=== PATIENT | female | born 1995 | race Hispanic/Latino ===

== ENCOUNTER 2022-05-18 19:08 | Emergency (ER) | payer MEDICAID, SELFPAY ==
[2022-05-18 19:22] VITALS: BP 112/59; PULSE 73; RESP 16; TEMP 37.6; O2SAT 100
--- NOTE | 2022-05-18 19:32 | ED.SKABFB ---
HPI - Skin/Abscess/Foreign Bdy General Chief complaint: Skin/Abscess/Foreign Body Stated complaint: Insect Bite Rt Leg Time Seen by Provider: 05/18/22 19:30 History of Present Illness HPI narrative: 26 year old female who presents to [facility] care with complaints of two lesions on her right leg that she thinks are some kind of insect bite, with itching and discomfort to area.First lesion is < than 0.5 cm diameter with minimal redness no induration and 2nd lesion is 1cm X1 cm with redness surrounding small red lesion, no drainage noted. Patient denies any difficulty with swallowing or any respiratory difficulty. Patient denies any fevers, chills or sweats. MD complaint: insect bite/sting and lesion Onset (ago): day(s) (2) Tetanus up to date: unsure Treatments prior to arrival: other (cortizone) Related Data Home Medications Medication Instructions Recorded Confirmed bupropion HCl 300 mg 24 hr tablet, 300 mg PO QAM 05/18/22 05/18/22 extended release lysine 500 mg tablet (L-Lysine) 500 mg PO DAILY 05/18/22 05/18/22 prazosin 2 mg capsule 2 mg PO DAILY 05/18/22 05/18/22 risperidone 1 mg tablet 1 mg PO DAILY 05/18/22 05/18/22 topiramate 100 mg tablet 100 mg PO DAILY 05/18/22 05/18/22 Allergies Allergy/AdvReac Type Severity Reaction Status Date / Time cefdinir [From Omnicef] AdvReac Severe Swelling Verified 05/18/22 19:30 of Lip/Tongue/Throat Review of Systems Review of Systems: CONSTITUTIONAL: Denies fever, chills, or sweats. EYES: Denies visual changes, redness, or discharge. ENT: Denies rhinorrhea, congestion, sore throat, or otalgia. CARDIOVASCULAR: Denies chest pain, palpitations, or edema. RESPIRATORY: Denies cough or dyspnea. GASTROINTESTINAL: Denies abdominal pain, nausea, vomiting, or diarrhea. GENITOURINARY: Denies dysuria or hematuria. SKIN: Positive for 2 lesion to right upper lower leg with redness and itching MUSCULOSKELETAL: Denies back pain, joint pain, or myalgia. NEUROLOGIC: Denies headache, numbness, or weakness. PSYCHIATRIC: Positive for history of anxiety or depression. [facility] Past Medical History Medical History (Updated 05/19/22 @ 08:26 by Zenaida Baxter NP) Anxiety with depression Dog bite facial required facial reconstruction Night terrors, adult Social History Social History (Updated 05/19/22 @ 08:24 by eZnaida Baxter NP) Smoking status: Current every day smoker Tobacco type: e-cigarettes/vaping Alcohol intake: unknown Substance use: unknown Gender identity (if verbalized by the patient): Female Comments At time of signature, agree with nursing past medical, surgical, social and family history. There is no relevant family history pertinent to the presenting complaint Exam Narrative: GENERAL: Well-appearing, well-nourished, and in no acute distress. HEAD: Normocephalic, atraumatic. EYES: PERRLA and EOMI. ENT: Nares clear, no rhinorrhea or epistaxis. Mucous membranes moist. NECK: Supple.no lymphadenopathy CHEST: Clear to auscultation. No respiratory distress.SAO2 100% on room air HEART: Regular rate and rhythm. No murmur heard. Normal peripheral pulses. ABDOMEN: Soft, nontender, nondistended, normal active bowel sounds. EXTREMITIES: Normal range of motion. No edema. SKIN: Warm, dry, Lesions X 2 on her right proximal lower leg one lesion <0.5cm diameter red with no drainage noted or induration. 2nd lesion area 1cm X1cm with small center lesion, no drainage or induration is itchy and painful NEURO: No focal deficits. Alert and oriented x3. Course Course Level of Care: Express Care Visit Vital Signs Vital signs: Vital Signs Temperature 37.6 C H 05/18/22 19:22 Pulse Rate 73 05/18/22 19:22 Respiratory Rate 16 05/18/22 19:22 Blood Pressure 112/59 L 05/18/22 19:22 Pulse Oximetry 100 05/18/22 19:22 Oxygen Delivery Room Air 05/18/22 19:22 Temperature 37.6 C H 05/18/22 19:22 Pulse Rate 73 05/18/22 19:22 Respiratory Rate 16 05/18/22
== END 2022-05-18 19:43 | disposition home or self-care (01) ==
PROVIDERS: Emergency Provider Registered Nurse
DX: S80.861A Insect bite (nonvenomous), right lower leg, initial encounter (principal); W57.XXXA Bitten or stung by nonvenomous insect and other nonvenomous arthropods, initial encounter; L02.415 Cutaneous abscess of right lower limb; F17.290 Nicotine dependence, other tobacco product, uncomplicated; F41.9 Anxiety disorder, unspecified; F32.A Depression, unspecified
CPT/HCPCS: 99203; G0463

== ENCOUNTER 2022-06-01 16:49 | Emergency (ER) | payer MEDICAID, SELFPAY ==
[2022-06-01 17:04] VITALS: BP 119/56; PULSE 83; RESP 18; TEMP 36.7; O2SAT 100
--- NOTE | 2022-06-01 17:18 | ED.GENADULT ---
HPI - General Adult General Chief complaint: Skin/Abscess/Foreign Body Stated complaint: Rash History of Present Illness HPI narrative: 26 y/o female presents to the [facility] via pov for an evaluation of a generalized rash that has been present x2 weeks. She reports the rash to be pruritic and erythematous. Itching is moderate. Denies using otc meds for sx. Scratching alleviates itch. Does not identify aggravating factors. Of note, patient reports that she was seen At this clinic approximately 2 weeks ago and was prescribed an antibiotic for a skin infection. She states the rash is similar. Related Data Home Medications Medication Instructions Recorded Confirmed bupropion HCl 300 mg 24 hr tablet, 300 mg PO QAM 05/18/22 06/01/22 extended release lysine 500 mg tablet (L-Lysine) 500 mg PO DAILY 05/18/22 06/01/22 prazosin 2 mg capsule 2 mg PO DAILY 05/18/22 06/01/22 risperidone 1 mg tablet 1 mg PO DAILY 05/18/22 06/01/22 topiramate 100 mg tablet 100 mg PO DAILY 05/18/22 06/01/22 Allergies Allergy/AdvReac Type Severity Reaction Status Date / Time cefdinir [From Omnicef] AdvReac Severe Swelling Verified 06/01/22 16:53 of Lip/Tongue/Throat Review of Systems Review of Systems: Denies recent/new changes in soaps, perfumes, lotions, detergents, and shampoos. Denies working with chemicals. Denies new or changes in medications/foods. Pertinent negatives fever, chills, sweats, change in appetite, malaise, poor p.o. intake, recent weight loss, change in appetite, myalgias, lymphadenopathy, LOC, dizziness, burning sensation, petechiae, blistering, swelling, streaking, warmth, lesions, easy bruising, lip/tongue/throat swelling, facial swelling, abdominal pain, nausea, vomiting, numbness, tingling, loss of sensation, cough, wheezing, chest pain, and heart palpitations/murmurs. [facility] Past Medical History Medical History Anxiety with depression Dog bite facial required facial reconstruction Night terrors, adult Social History Social History (Updated 05/19/22 @ 08:24 by Zenaida Baxter NP) Smoking status: Current every day smoker Tobacco type: e-cigarettes/vaping Alcohol intake: unknown Substance use: unknown Gender identity (if verbalized by the patient): Female Comments I have reviewed and agree with the patient's past medical, surgical, social, and family hx as documented by the RN. There is no relevant family history pertinent to the presenting complaint. Exam Narrative: GENERAL: Well-appearing, well-nourished, and in no acute distress. HEAD: Normocephalic, atraumatic. No facial swelling appreciated. EYES: PERRLA and EOMI. No evidence of erythema, swelling, or drainage. ENT: Nares clear, no rhinorrhea or epistaxis.Mucous membranes moist and pink. Uvula is midline without erythema and swelling. No evidence of obstruction, petechial rash, cobblestoning, lesions, ulcers, erythema, swelling, exudates, peritonsillar abscess, tenting, or drooling. Breath odor and voice normal. NECK: Supple. No Lymphadenopathy or nuchal rigidity appreciated. CHEST: Bilateral lung russo are clear to auscultation. No respiratory distress. No evidence of cough or pleuritic cp upon examination. HEART: Regular rate and rhythm. No murmur, gallop, or rub heard. EXTREMITIES: Normal range of motion. No edema. SKIN: Warm, dry. Generalized rash appreciated. Rash consistent with insect bites. Multiple areas of abrasions consistent with scratching. Rash is sparsely dispersed. NEURO: No focal deficits. Alert and oriented x3. Course Course Level of Care: Express Care Visit Vital Signs Vital signs: Vital Signs Temperature 98.0 F 06/01/22 17:04 Pulse Rate 83 06/01/22 17:04 Respiratory Rate 18 06/01/22 17:04 Blood Pressure 119/56 L 06/01/22 17:04 Pulse Oximetry 100 06/01/22 17:04 Oxygen Delivery Room Air 06/01/22 17:04 [facility]
== END 2022-06-01 17:19 | disposition home or self-care (01) ==
PROVIDERS: Emergency Provider Nurse Practitioner Family
DX: R21 Rash and other nonspecific skin eruption (principal); F41.8 Other specified anxiety disorders; F17.290 Nicotine dependence, other tobacco product, uncomplicated
CPT/HCPCS: 99213; G0463

== ENCOUNTER 2023-07-22 21:30 | Emergency (ER) | payer MEDICAID, SELFPAY ==
[2023-07-22 21:33] VITALS: BP 116/58; PULSE 81; RESP 14; TEMP 36.6; O2SAT 100
[2023-07-22 22:55] LABS: Beta HCG Quantitative < 2.39 mIU/ML
--- NOTE | 2023-07-22 23:07 | ED.NAVMDI ---
HPI - Nausea/Vomiting/Diarrhea General Chief complaint: Nausea/Vomiting/Diarrhea Stated complaint: nausea Time Seen by Provider: 07/22/23 22:07 Source: patient Mode of arrival: ambulatory Limitations: no limitations History of Present Illness HPI Narrative: A 27-year-old female that presents emergency department for nausea. Ongoing over the last couple of days. Reports 1 episode of vomiting. She took a home test that was negative. She presented to the ER for a blood test. Does report that the air conditioning has been out at her house and has been hot. Denies fever, abdominal pain, diarrhea, or dysuria. Related Data Allergies Allergy/AdvReac Type Severity Reaction Status Date / Time cefdinir [From Omnicef] Allergy Swelling Verified 07/22/23 21:32 of Lip/Tongue/Throat Review of Systems Review of Systems: CONSTITUTIONAL: Denies fever GASTROINTESTINAL: Reports nausea and vomiting. Denies abdominal pain, diarrhea. GENITOURINARY: Denies dysuria All systems reviewed & are unremarkable except as noted in HPI and below PMFSH Past Medical History Medical History (Updated 07/22/23 @ 23:10 by Randi Pérez PA-C) No active medical problems Social History Social History (Updated 07/22/23 @ 23:10 by Randi Pérez PA-C) Substance use: never Exam Narrative: GENERAL: Well-appearing, well-nourished, and in no acute distress. HEAD: Normocephalic, atraumatic. EYES: EOMI. ENT: Nares clear, no rhinorrhea or epistaxis. Mucous membranes moist. Oropharynx without tonsillar hypertrophy exudate or other lesions. CHEST: Clear to auscultation. No respiratory distress. No wheezes rales or rhonchi HEART: Regular rate and rhythm. No murmur heard. Normal peripheral pulses. ABDOMEN: Soft, nontender, nondistended, normal active bowel sounds. EXTREMITIES: Normal range of motion. No edema. SKIN: Warm, dry, no rash. NEURO: No focal deficits. Alert and oriented x3. PSYCH: Normal mood and affect Course Course Emergency Course: Patient offered blood work for further evaluation. She declines at this time Vital Signs Vital signs: Vital Signs Temperature 97.9 F 07/22/23 21:33 Pulse Rate 81 07/22/23 21:33 Respiratory Rate 14 07/22/23 21:33 Blood Pressure 116/58 L 07/22/23 21:33 Pulse Oximetry 100 07/22/23 21:33 Temperature 97.9 F 07/22/23 21:33 Pulse Rate 81 07/22/23 21:33 Respiratory Rate 14 07/22/23 21:33 Blood Pressure 116/58 L 07/22/23 21:33 Pulse Oximetry 100 07/22/23 21:33 MDM - Nausea/Vomiting/Diarrhea MDM Narrative Medical decision making narrative: Patient presents to the emergency department for nausea noted over the last couple days. She thought maybe she was . She took a home test that was negative, so she presented to the ER for a serum test. This is negative as well. She has no abdominal tenderness. She does report that her air conditioning has been out the last couple of days it is very hot in her house. Could be the cause of her symptoms. Offered further evaluation with blood work, she declines at this time. She was given warnings to return to the ER Differential Diagnosis Differential diagnosis: Likely food poisoning, dehydration and other () Lab Data Attestation: I reviewed the patient's lab results. Labs: Lab Results 07/22/23 Range/Units 22:23 Beta HCG, Quant < 2.39 mIU/ML Critical Care Time Critical Care Time Critical Care Time: No Discharge Plan Discharge Clinical Impression: Nausea Patient Disposition: Home, Self-Care Condition: Stable Instructions: Acute Nausea and Vomiting (ED) Additional Instructions: Return to the ER if you experience fever, abdominal pain with nausea and vomiting, you are unable to keep down liquids or solids, blood in the stool, pain or burning with urination, blood in the urine or any other symptoms that are concerning to you Remain well hydrat
== END 2023-07-22 23:19 | disposition home or self-care (01) ==
PROVIDERS: Emergency Provider Physician Assistant
DX: R11.0 Nausea (principal)
CPT/HCPCS: 36415; 84702; 99283

== ENCOUNTER 2024-01-15 22:35 | Emergency (ER) | payer MEDICAID, SELFPAY ==
[2024-01-15 22:44] VITALS: BP 121/66; PULSE 90; RESP 16; TEMP 36.2; O2SAT 98
== END 2024-01-16 00:23 | disposition left against medical advice (07) ==
DX: R10.9 Unspecified abdominal pain (principal)
CPT/HCPCS: 99199

== ENCOUNTER 2024-06-16 08:32 | Outpatient (CLI) | payer OTHER, SELFPAY ==
--- NOTE | ~2024-06-16 | US_ITS ---
EXAMINATION: US OB <=14 wk fetus w TV DATE: 06/16/2024 09:40 INDICATION: Confirmation of viability during first trimester TECHNIQUE: Real-time pelvic ultrasound utilizing both a transvaginal and transabdominal probe was pe rformed. The interpreting radiologist was not present for the study. COMPARISON: None. FINDINGS: The uterus measures 13.8 x 6.4 x 8.5 cm. There is an intrauterine gestational sac. A yolk sac and fe nubia pole are identified. The crown rump length measures 1.8 cm, which correlates with an estimated ge stational age of 8 weeks and 3 days. heart motion is identified measuring 159 beats per minute (bpm) by M-mode Doppler. The right ovary measures 2.3 x 2.3 x 2.2 cm. The left ovary measures 2.7 x 2.4 x 2.2 cm. There is no free fluid in the pelvis. IMPRESSION: 1. Single living fetus with heart rate of 159 bpm. 2. Gestational age by ultrasound of 8 weeks 3 day(s) +/- 4 day(s) with ultrasound estimated date of delivery (HILARIA) of 01/23/2025. Reviewed, dictated and finalized at location A. IMPRESSION: 1. Single living fetus with heart rate of 159 bpm. 2. Gestational age by ultrasound of 8 weeks 3 day(s) +/- 4 day(s) with ultraso und estimated date of delivery (HILARIA) of 01/23/2025.
== END 2024-06-16 08:33 | disposition home or self-care (01) ==
LOC: ANHIMG 08:35
PROVIDERS: Referring Provider Advanced Practice Midwife; Visit Provider Obstetrics & Gynecology Gynecology
DX: O36.80X0 Pregnancy with inconclusive fetal viability, not applicable or unspecified (principal); Z3A.08 8 weeks gestation of pregnancy
CPT/HCPCS: 76801; 76817

== ENCOUNTER 2024-07-21 20:11 | Emergency (ER) | payer OTHER, SELFPAY ==
[2024-07-21 20:13] VITALS: BP 108/65; PULSE 87; RESP 15; TEMP 36.4; O2SAT 100
--- NOTE | 2024-07-21 22:16 | ED.SKABFB ---
HPI - Skin/Abscess/Foreign Bdy General Chief complaint: Skin/Abscess/Foreign Body Stated complaint: ate a sandwich that had glass in it, 3 months preg Time Seen by Provider: 07/21/24 20:46 Source: patient Mode of arrival: ambulatory Limitations: no limitations History of Present Illness HPI narrative: This is a 28 year old female that presents to the ER for possible ingestion of foreign body. Reports she ate a sandwich this morning and is unsure if she maybe swallowed a piece of glass or plastic. Reports she bit down and took a clear, hard object out of her teeth. Reports she believed she swallowed some of it. Reports she has had a sore throat and a bit of a cough today. She is currently 13 weeks . Wants to make sure the baby is okay. She has been tolerating oral intake. Denies abdominal pain, vomiting, vaginal bleeding or pelvic cramping. Related Data Home Medications Medication Instructions Recorded Confirmed bupropion HCl 300 mg 24 hr tablet, 300 mg PO QAM 05/18/22 06/01/22 extended release lysine 500 mg tablet (L-Lysine) 500 mg PO DAILY 05/18/22 06/01/22 prazosin 2 mg capsule 2 mg PO DAILY 05/18/22 06/01/22 risperidone 1 mg tablet 1 mg PO DAILY 05/18/22 06/01/22 topiramate 100 mg tablet 100 mg PO DAILY 05/18/22 06/01/22 Allergies Allergy/AdvReac Type Severity Reaction Status Date / Time cefdinir [From Omnicef] Allergy Swelling Verified 07/23/23 09:12 of Lip/Tongue/Throat Review of Systems Review of Systems: CONSTITUTIONAL: Denies fever ENT: Reports sore throat GASTROINTESTINAL: Denies abdominal pain, nausea, vomiting All systems reviewed & are unremarkable except as noted in HPI and below PMFSH Past Medical History Medical History (Updated 07/21/24 @ 23:40 by Randi Pérez PA-C) Anxiety with depression Dog bite facial required facial reconstruction Night terrors, adult No active medical problems Social History Social History (System 07/23/23 @ 09:12 by Jakob Junior) Smoking status: Current every day smoker Tobacco type: e-cigarettes/vaping Alcohol intake: unknown Substance use: unknown Gender identity (if verbalized by the patient): Female Exam Narrative: GENERAL: Well-appearing, well-nourished, and in no acute distress. HEAD: Normocephalic, atraumatic. EYES: EOMI. ENT: Nares clear, no rhinorrhea or epistaxis. Mucous membranes moist. Oropharynx without tonsillar hypertrophy exudate or other lesions. Bilateral TMs pearly lainez non-bulging NECK: Supple. No adenopathy or masses. CHEST: Clear to auscultation. No respiratory distress. No wheezes rales or rhonchi HEART: Regular rate and rhythm. No murmur heard. Normal peripheral pulses. ABDOMEN: Soft, nontender, nondistended, normal active bowel sounds. EXTREMITIES: Normal range of motion. No edema. SKIN: Warm, dry, no rash. NEURO: No focal deficits. Alert and oriented x3. PSYCH: Normal mood and affect Course Course Emergency Course: Patient agrees with plan of care Vital Signs Vital signs: Vital Signs Temperature 97.6 F 07/21/24 20:13 Pulse Rate 87 07/21/24 20:13 Respiratory Rate 15 07/21/24 20:13 Blood Pressure 108/65 07/21/24 20:13 Pulse Oximetry 100 07/21/24 20:13 Temperature 97.6 F 07/21/24 20:13 Pulse Rate 87 07/21/24 20:13 Respiratory Rate 15 07/21/24 20:13 Blood Pressure 108/65 07/21/24 20:13 Pulse Oximetry 100 07/21/24 20:13 Procedures Other Procedure Procedure 1: Other Procedure: Bedside ultrasound performed which showed activity and cardiac motion MDM - Skin/Abscess/Foreign Bdy MDM Narrative Medical decision making narrative: patient presents to the emergency department for possible foreign body ingestion. Reports she was eating a sandwich this morning. Bit into something that was hard. Was unsure if it was a piece of plastic or glass. Reports she believes she swallowed some of it. Today she has had some throat discomf
[2024-07-21 22:30] LABS: Strep Group A RT-PCR NOT DETECTED (Negative)
[2024-07-21 23:52] VITALS: BP 119/68; PULSE 96; RESP 16; TEMP 36.6; O2SAT 96
== END 2024-07-22 00:18 | disposition home or self-care (01) ==
PROVIDERS: Emergency Provider Physician Assistant
DX: T18.9XXA Foreign body of alimentary tract, part unspecified, initial encounter (principal); F41.8 Other specified anxiety disorders; F17.290 Nicotine dependence, other tobacco product, uncomplicated; Z79.899 Other long term (current) drug therapy; W44.9XXA Unspecified foreign body entering into or through a natural orifice, initial encounter
CPT/HCPCS: 87651; 99283

== ENCOUNTER 2024-08-22 09:18 | Outpatient (CLI) | payer OTHER, SELFPAY ==
--- NOTE | ~2024-08-22 | US_ITS ---
EXAMINATION: US OB /maternal detail DATE: 08/22/2024 11:11 INDICATION: anatomic survey. TECHNIQUE: Real-time ultrasound of the pelvis was performed. COMPARISON: Ultrasound 06/16/2024 FINDINGS: There is a single living fetus in vertex presentation. The placenta is anterior. heart rate is 156 beats per minute (bpm). The cervical length is 4.2 cm on transabdominal images, which is normal. The amniotic fluid index is 11.3 cm, which is normal. The following biometric data were obtained: Biparietal diameter (BPD): 3.9 cm; head circumference (HC): 14.5 cm; abdominal circumference (AC): 12 .3 cm; femur length (FL): 2.5 cm. These measurements are concordant. Estimated weight is 209 g +/- 31 g, which correlates with the 39th percentile when 01/24/25 is u sed as estimated date of delivery. As single measurements, these parameters are each equal to the following estimated gestational ages: BPD: 17 weeks 6 days. HC: 17 weeks 5 days. AC: 18 weeks 0 days. FL: 17 weeks 4 days. estimated gestational age based solely on measurements from this exam is 17 weeks 6 days +/- 1 weeks 2 days. The cerebral ventricles, cerebellum, cisterna magna, and spine are normal. The heart is normal. The d iaphragm, stomach, kidneys, and bladder are normal. There are two umbilical arteries to yield a 3-ves paul cord. The cord insertion is normal. IMPRESSION: 1. Single living fetus in vertex presentation. 2. Estimated weight is 209 g +/- 31 g, which correlates with the 39th percentile when 01/24/25 is used as estimated date of delivery. 3. Normal anatomic survey. Reviewed, dictated and finalized at location A. IMPRESSION: 1. Single living fetus in vertex presentation. 2. Estimated weight is 209 g +/- 31 g, which correlates with the 39th pe rcentile when 01/24/25 is used as estimated date of delivery. 3. Normal anatomic survey.
== END 2024-08-22 09:19 | disposition home or self-care (01) ==
LOC: ANHIMG 09:22
PROVIDERS: Visit Provider Advanced Practice Midwife
DX: Z36.9 Encounter for antenatal screening, unspecified (principal)
CPT/HCPCS: 76805

== ENCOUNTER 2024-11-17 13:01 | Observation (INO) | payer OTHER, SELFPAY ==
[2024-11-17 13:30] VITALS: BP 111/63; PULSE 89
--- NOTE | 2024-11-17 13:36 | OBADM ---
This patient, Gabriela Quiros, admitted to the OB room OB Post 117 for observation. Patient/family oriented to hospital policies and general routines including ID bracelet, bed and alarms, visiting hours, pain management, procedures, bathroom and other care routines, personal items, smoking policy, room service/diet, and visiting hours. Patient/Family are encouraged to report perceived risks to care and to ask questions if they do not understand what they are told or what they should do.
[2024-11-17 13:44] LABS: Add Urine Microscopic? YES; Appearance Urine Clear (Clear); Bacteria Urine Rare /hpf; Bilirubin Urine Negative (Negative); Blood Urine Negative (Negative); Color Urine Yellow (Yellow); Glucose Urine UA Negative (Negative); Ketones Urine 1+ mg/dL (Negative); Leukocyte Esterase Ur 1+ LEU/UL (Negative); Need Manual Microscopic Reviewed; Nitrate Urine Negative (Negative); Non Pathogenic Casts 0-2; Protein Urine Negative (Negative); RBC Urine 0-2 /hpf (0-2); Specific Grav Ur 1.014 (1.001-1.035); Squamous Epithelial Cell Urine Moderate /hpf (Few); Urobilinogen Urine 0.2 mg/dL (<2.0); WBC Urine 0-5 /hpf (0-3)
--- NOTE | 2024-11-17 14:27 | PC.NURSE ---
Dr. Garcia called with reports of patient's arrival on unit with back and hip pain. NST reactive and no contractions, leaking or bleeding. Okay to discharge with Dr recommendation of support band.
--- NOTE | 2024-12-12 09:29 | PM.OBTRLD ---
OB - Triage/Final Diagnosis Visit Information Reason for evaluation: other (Abdominal and back pain) Comments/Additional reasons for admission: I have assessed the risk for this patient, Gabriela Munoz Ishaan, and determined that she would benefit from observation care. Evaluation Laboratory results: Laboratory Tests 11/17/24 13:26 Urine Color Yellow Urine Appearance Clear Urine pH 8.0 Ur Specific [place] 1.014 Urine Protein Negative Urine Glucose (UA) Negative Urine Ketones 1+ H Ur Blood (Man) Negative Urine Nitrate Negative Urine Bilirubin Negative Urine Urobilinogen 0.2 Add Ur Microanalysis Reviewed Leukocyte Esterase Rfl 1+ H Urine RBC 0-2 Urine WBC 0-5 Ur Squamous Epith Cells Moderate Urine Bacteria Rare Urine Casts 0-2
== END 2024-11-17 14:27 | disposition home or self-care (01) ==
PROVIDERS: Admitting Provider Obstetrics & Gynecology Gynecology; Visit Provider Obstetrics & Gynecology Gynecology
DX: O26.893 Other specified pregnancy related conditions, third trimester (principal); R10.9 Unspecified abdominal pain; O99.891 Other specified diseases and conditions complicating pregnancy; M54.9 Dorsalgia, unspecified; Z3A.30 30 weeks gestation of pregnancy
CPT/HCPCS: 81001; 87086; G0378; G0379

== ENCOUNTER 2025-01-13 16:45 | Inpatient (IN) | payer OTHER, SELFPAY ==
[2025-01-13] VITALS (77 sets, daily range): BP systolic 91–123; BP diastolic 51–91; PULSE 69–148; RESP 16; TEMP 36.6; O2SAT 94–100; BMI 32.0
--- OUTSIDE RECORDS SUMMARY | 2025-01-13 16:52 | XMS_ITS | Patient Health Summary ---
Author Organization [facility] Address [address] [place] [address] Care Team Providers Care Restorative Care Technician Name Role Phone Unavailable Primary Care Provider Unavailabl e Note from [facility],non-owned Affiliates and Associated Physician Practices is amultiple site organization consisting of ambulatory clinics and hospital sitesin [place], [place], [place] and [place]. This disclosure is being madepursuant to the Care Everywhere program and may not contain all information available regarding this patient. Last updated 18.[facility] Allergies * Cefdinir(Anaphylaxis) -High Criticality Medications * Be aware that medications may not be up to date on this document. Alwaysverify current medications with the patient. * Vit-Fe Fumarate-FA ( vitamin) 28-0.8 MG tablet Take 1 (one) tablet by mouth once daily * ARIPiprazole (Abilify) 1 MG/ML oral solution Take 10 mL by mouth once daily Active Problems Problem Noted Date Diagnosed Date Indication for care in labor or delivery 024 Social History Tobacco Use Types Packs/Day Years Used Date Smoking Tobacco: Never Smokeless Tobacco: Never Tobacco Cessation:Counseling Given: Not Answered Alcohol Use Standard Drinks/Week Comments Never 0 (1 standard drink = 0.6 oz pur e alcohol) Overall Financial Resource Strain (CARDIA) Answe r Date Recorded How hard is it for you to pa y for the very basics like food, housing, medical care, and heating? Not very hard 09/06/2024 [facility] [place] of Occupat ional Health - Occupational Stress Questionnaire Answer Date Recorded Do you feel stress - tense, restless, nervous, or anxious, or unable to sleep at night because your mind is troubled all the time - these days? Patient declined 09/06/2024 Hunger Vital Sign Answer Date Recorded Within the past 12 months, y ou worried that your food would run out before you got the money to buy more. Never true 09/06/20 24 Within the past 12 months, t he food you bought just didn't last and you didn't have money to get more. Never true 09/06/2024 PRAPARE - Transportation Answer Date Re corded In the past 12 months, has l ack of transportation kept you from medical appointments or from getting medications? No 06/2024 In the past 12 months, has l ack of transportation kept you from meetings, work, or from getting things needed for daily living? No 09/06/2024 Housing Stability Vital Sign Answer Toni e Recorded In the last 12 months, was t here a time when you were not able to pay the mortgage or rent on time? No 09/06/2024 In the last 12 months, how many places have you lived? 1 09/06/2024 In the last 12 months, was t here a time when you did not have a steady place to sleep or slept in a group home (including now)? No 09/06/2024 Estimated Date of Delivery Comme nts Yes 01/24/2025 Based on Patient Reported Sex and Gender Information Value Date Recorded Sex Assigned at Not on file Gender Identity Not on file Sexual Orientation Not on file Last Filed Vital Signs Vital Sign Reading Time Taken Comments Blood Pressure 105/58 09/06/2024 8:19 PM CDT Pulse - - Temperature 36.7 C (98.1 F) 09/06/2024 8:19 PM CDT Respiratory Rate 15 09/06/2024 8:19 PM CDT Oxygen Saturation - - Inhaled Oxygen Concentration - - Weight 77.1 kg (170 lb) 09/06/2024 8:23 PM CDT Height 160 cm (5' 3 ) 09/06/2024 8:23 PM CDT Body Mass Index 30.11 09/06/2024 8:23 PM CDT Procedures * URINALYSIS REFLEX MICROSCOPIC REFLEX CULTURE(Performed 09/06/2024) Performed for Indication for care in labor or delivery (HCC) Results * URINALYSIS REFLEX MICROSCOPIC REFLEX CULTURE (09/06/2024 8:22 PM CDT) Color UA Yellow Yellow, Straw 09/06/2024 8:46 PM CDT [facility] Clarity UA Clear Clear 09/06/2024 8:46 PM CDT [facility] Glucose UA Normal Normal 09/06/2024 8:46 PM CDT [facility] Bilirubin UA Negative Negative 09/06/2024 8:46 PM CDT [facility] Ketone UA Negative Negative 09/06/2024 8:46 PM CDT [facility] Specific [place] UA 1.018 1.005 - 1.030 09/06/2024 8:46 PM CDT [facility] Blood UA Negative Negative 09/06/2024 8:46 PM CDT [facility] pH UA 6.5 5.0 - 9.0 pH 09/06/2024 8:46 PM CDT [facility] Protein UA Negative Negative 09/06/2024 8:46 PM CDT [facility] Urobilinogen UA Normal Normal mg/dL 09/06/2024 8:46 PM CDT [facility] Nitrite UA Negative Negative 09/06/2024 8:46 PM CDT [facility] Leukocyte UA Negative Negative 09/06/2024 8:46 PM CDT [facility] Urine Microscopy Urine microscopy not indicated 09/06/2024 8:46 PM CDT [facility] Reflex Status Culture not indicated 09/06/2024 8:46 PM CDT [facility] Urine URINE SPECIMEN OBTAINED BY CLEAN CATCH PROCEDURE / Unknown Collection / Unknown 09/06/2024 8:22 PM CDT 09/06/2024 8:37 PM CDT Narrative [facility] - 09/06/2024 8:46 PM CDT Edliia Marquez MD LAB - URINALYSIS O RDERABLES [facility] [address] [place] [address]
--- OUTSIDE RECORDS SUMMARY | 2025-01-13 16:52 | XMS_ITS | Referral Summary ---
Author Organization [facility] [employer] Address [address] [place] [address] Care Team Providers Care Acquisition Manager Name Role Phone Unavailable Primary Care Provider Unavailabl e Source Comments [facility],non-owned Affiliates and Associated Physician Practices is amultiple site organization consisting of ambulatory clinics and hospital sitesin [place], [place], [place] and [place]. This disclosure is being madepursuant to the Care Everywhere program and may not contain all information available regarding this patient. Last updated 18.[facility] [employer] Allergies Active Allergy Reactions Criticality Noted Date Comments Cefdinir Anaphylaxis High 09/06/2024 Medications * Be aware that medications may not be up to date on this document. Alwaysverify current medications with the patient. Medication Sig Dispensed Refills Start Date End Date Status Vit-Fe Fumarate-FA ( vitamin) 28-0.8 MG tablet Take 1 (one) tablet by mouth once daily Active ARIPiprazole (Abilify) 1 MG/ML oral solution Take 10 mL by mouth once daily Active Active Problems Problem Noted Date Diagnosed Date Indication for care in labor or delivery 024 Estimated Date of Delivery Comme nts Yes 01/24/2025 Based on Patient Reported Social History Tobacco Use Types Packs/Day Years [...] care, and heating? Not very hard 09/06/2024 [facility] [place] of Occupat ional Health - Occupational Stress [...] place to sleep or slept in a fdc (including now)? No 09/06/2024 Estimated Date of [...] Mass Index 30.11 09/06/2024 8:23 PM CDT Plan of Treatment Upcoming Encounters Date Type Department Care Team (Late st Contact Info) Description 01/24/2025 8:00 PM SHERIFFS DETECTIVE Hospital Encounter [facility] - Labor & Delivery [address] [place] [address] Gabriela Quiros Personal/Family Self 1995
--- OUTSIDE RECORDS SUMMARY | 2025-01-13 16:52 | XMS_ITS | Referral Summary ---
Author Organization [facility] Address [address] [place] [address] Care Team Providers Care Tank Carpenter Name Role Phone No, Physician Primary Care Provider [phone] Social History Tobacco Use Types Packs/Day Years Used Date Smoking Tobacco: Never Assessed Personal Safety Answer Date Recorded Getting School Help Needed Not on file 04/21 Comments Unknown Sex and Gender Information Value Date Recorded Sex Assigned at Not on file Legal Sex Female 11:29 AM CDT Gender Identity Not on file Sexual Orientation Not on file Plan of Treatment Not on file Insurance [facility] Care Teams Tank Carpenter Relationship Specialty Start Date End Date No, Physician PCP - General 04/21/24
--- OUTSIDE RECORDS SUMMARY | 2025-01-13 16:52 | XMS_ITS | Clinical Summary ---
Author Organization [facility] Address [facility] [place] [address] Care Team Providers Care Residential Pest Control Technician Name Role Phone No, Physician Primary Care Provider [phone] Social History Tobacco Use Types Packs/Day Years Used Date Smoking Tobacco: Never Assessed Personal Safety Answer Date Recorded Getting School Help Needed Not on file 04/21 Comments Unknown Sex and Gender Information Value Date Recorded Sex Assigned at Not on file Legal Sex Female 11:29 AM CDT Gender Identity Not on file Sexual Orientation Not on file Plan of Treatment Health Maintenance Due Date Last Done Comments Cervical Cancer Screening 1996 Depression Screening 1996 Hepatitis C Screening 1996 DTaP/Tdap/Td Vaccine (1 - Tdap) 2007 Varicella Vaccines (1 of 2 - 13+ 2-dose series) 2009 Hepatitis B Screening 2014 Regular Well Visit/Exam 18-64 2014 Influenza Vaccine (#1) 2024 , 09/10/2021 HPV Vaccines Completed 12/04/2022, 02/06/2022, 07/24/2021 Pneumococcal vaccine <65 Aged Out No longer eligible based on patient's age to complete this topic Insurance [facility] Care Teams Residential Pest Control Technician Relationship Specialty Start Date End Date No, Physician PCP - General 04/21/24
--- OUTSIDE RECORDS SUMMARY | 2025-01-13 16:52 | XMS_ITS | Clinical Summary ---
Author Organization [facility] Address [address] [place] [address] Care Team Providers Care Warehouse Representative Name Role Phone Unavailable Primary Care Provider Unavailabl e Source Comments [facility],non-owned Affiliates and Associated Physician Practices is amultiple site organization consisting of ambulatory clinics and hospital sitesin [place], [place], [place] and [place]. This disclosure is being madepursuant to the Care Everywhere program and may not contain all information available regarding this patient. Last updated 18.[facility] Allergies Active Allergy Reactions Criticality Noted Date [...] care, and heating? Not very hard 09/06/2024 [facility] [place] of Occupat ional Health - Occupational Stress [...] place to sleep or slept in a [place] health care facility (including now)? No 09/06/2024 Estimated Date of [...] st Contact Info) Description 01/24/2025 8:00 PM SENIOR LOSS CONTROL SPECIALIST Hospital Encounter [facility] - Labor & Delivery [address] [place] [address] Health Maintenance Due Date Last Done Comments PAP SMEAR 1996 HIV SCREENING 2011 HEPATITIS C SCREENING 08/23/2014 DTAP/TDAP/TD VACCINES (1 - Tdap) 2015 HEPATITIS B VACCINE (1 of 3 - 19+ 3-dose series) 2015 COVID-19 VACCINE (1 - 2023-2 5 season) 2024 INFLUENZA VACCINE (#1) 2024 3, 09/10/2021 OB-ONE HOUR GLUCOSE 10/18/2024 OB-TDAP CURRENT 10/25/2024 OB-RHOGAM INJECTION 11/01/2024 DEPRESSION SCREENING 11/30/2024 OB-GROUP B STREP SCREEN 12/20/2024 ZOSTER VACCINE (1 of 2) 2046 HIB VACCINE Aged Out No longer eligi ble based on patient's age to complete this topic HPV VACCINE Aged Out No longer eligi ble based on patient's age to complete this topic MENINGOCOCCAL (Group B) VACCINE Aged Out No longer eligible b ased on patient's age to complete this topic MENINGOCOCCAL VACCINE Aged Out No jessi soham eligible based on patient's age to complete this topic PNEUMOCOCCAL VACCINE Aged Out No long er eligible based on patient's age to complete this topic Respiratory Syncytial Virus (RSV) Vaccine Pt: or over 60 yrs (No Doses Required) Completed Gabriela Quiros Personal/Family Self 1995
--- NOTE | 2025-01-13 17:23 | LDADM ---
This patient, Gabriela Quiros, was admitted to Labor/Delivery/Recovery 106 on 01/13/25 at 16:45. Plans for labor, pain management and were discussed with patient. Patient/family oriented to hospital policies and general routines including ID bracelet, bed and alarms, visiting hours, pain management, procedures, bathroom and other care routines, personal items, smoking policy, room service/diet and guest tray routines, security routines, and visiting hours. Patient/Family are encouraged to report perceived risks to care and to ask questions if they do not understand what they are told or what they should do. See OBIX for further documentation.
--- NOTE | 2025-01-13 17:29 | WPDANESEPP ---
Anes - Eval Pre Procedure Procedure: labor epidural Date/Time: 01/13/25 17:29 Surgeon: silvino Preop Diagnosis: pain during labor Pre Op Diagnosis: IOL Patient Data Age: 29 Gender: F Height: Weight: Allergies Allergy/AdvReac Type Severity Reaction Status Date / Time cefdinir (From Omnicef) Allergy Swelling Verified 12/24/24 13:54 of Lip/Tongue/Throat Home Medications ?Medication ?Instructions ?Recorded ?Confirmed ?Type bupropion HCl 300 mg 24 hr tablet, 300 mg PO QAM 05/18/22 12/24/24 History extended release risperidone 1 mg tablet 1 mg PO DAILY 05/18/22 12/24/24 History topiramate 100 mg tablet 100 mg PO DAILY 05/18/22 12/24/24 History Patient hx anesthesia problems: none Family hx anesthesia problems: none Results Review: All pre-operative results and documents have been reviewed as part of the pre-operative evaluation. [facility] Past Medical History Medical History (Updated 01/13/25 @ 17:31 by Za Schwab CRNA) History of ITP Asthma IUP (intrauterine ), incidental Bipolar 1 disorder Night terrors, adult Anxiety with depression Dog bite facial required facial reconstruction No active medical problems Family History Family History (Updated 12/24/24 @ 13:39 by Lorenza Valdez RN) Mother Ovarian cancer Breast cancer Social History Social History (System 07/23/23 @ 09:12 by Jakob Junior) Smoking status: Current every day smoker Tobacco type: e-cigarettes/vaping Alcohol intake: unknown Substance use: unknown Gender identity (if verbalized by the patient): Female Exam Day of Procedure 01/13/25 17:29
[2025-01-13] MEDS: AMPICILLIN 2 GM/NS 100 ML 2 GM/100 ML BAG IVPB (17:44)
[2025-01-13] MEDS: LACTATED RINGERS 1,000 ML 125 ML IV CONT ×2 (17:44→21:49)
[2025-01-13 17:46] LABS: Basophils Percent Auto 0.3 % (0.2-1.2); Eosinophils Absolute Auto 0.1 K/mm3 (0-0.3); Eosinophils Percent Auto 0.6 % (0-4.4); Hemoglobin 10.9 g/dL (12.0-15.0); Immature Granulocyte Absolute 0.06 K/mm3 (0.00-0.031); Immature Granulocyte Percent A 0.6 % (0-0.5); Lymphocytes Absolute Auto 2.42 K/mm3 (0.9-3.2); Lymphocytes Percent Auto 26.1 % (18.3-44.2); Mean Corpuscular HGB Conc 34.1 g/dl (32-36); Mean Corpuscular Hemoglobin 29.9 pg (26-34); Mean Corpuscular Volume 87.7 fl (80-100); Mean Platelet Volume 10.4 fl (7.4-10.4); Monocytes Absolute Auto 0.7 K/mm3 (0.1-0.6); Neutrophils Percent Auto 64.4 % (45.5-73.1); Platelet Count Result 288 k/mm3 (150-375); Red Blood Count 3.65 M/mm3 (4.2-5.4); Red Cell Distribution Width 12.5 % (11.5-14.5); White Blood Count 9.3 K/mm3 (4.5-10.0)
[2025-01-13] MEDS: OXYTOCIN 30 UNITS/NS 500 ML 30 UNITS/500 ML BAG IV CONT (18:13)
[2025-01-13 18:22] LABS: Rapid Plasma Reagin Non-Reactive (NonReactive)
[2025-01-13 18:38] LABS: HIV 1/2 Ab P24 Ag Result Negative (Negative)
--- NOTE | 2025-01-13 21:07 | WPDOBADMIT ---
Obstetrics - Admit Note Admission Note: record reviewed. No pertinent additions to the history and/or any subsequent changes in the physical findings that are not consistent with the expected course of the were found. Additions to the history and/or subsequent changes in the physical findings follow. Patient here for MIL. cervix 3-4/50/-2 AROM with clear fluid. FHTs cat. I
[2025-01-13] MEDS: AMPICILLIN 1 GM/NS 50 ML 1 GM/50 ML BAG IVPB (21:48)
[2025-01-13] MEDS: ONDANSETRON INJ 4 MG/2 ML VIAL IV PUSH (21:49)
[2025-01-13] MEDS: PHENYLEPHRINE 1,000 MCG/10 ML SYRINGE 100 MCG IV PUSH (23:28)
[2025-01-14] VITALS (39 sets, daily range): BP systolic 84–114; BP diastolic 49–80; PULSE 68–93; RESP 16–18; TEMP 36.5–36.9; O2SAT 99–100
--- NOTE | 2025-01-14 00:06 | P.DS_ITS ---
DS: Admitting Diagnosis Discharge Date 01/15/25 Admitting Diagnosis Intrauterine at 39 weeks Medical induction of labor DS: Discharge Diagnosis Discharge Diagnosis (1) (normal spontaneous vaginal delivery): Code(s): O80 - Encounter for full-term uncomplicated delivery Status: Acute OB - DS: Summary OB Procedures : Ultrasound OB Procedures Intrapartum: Spontaneous Vag Delivery OB Procedures: : Antibiotics Peripartum Data Infant Delivery Method: Natural Vaginal Laceration Description: None complications: none Status at Discharge Functional status at discharge: independent ambulation Overall status at discharge: patient is progressing back to baseline Time Spent with Patient Time attestation: Total time spent providing and/or coordinating discharge services: DS: Data Data Completed and Pending Labs on day of discharge: Labs from last 24 hours 01/13/25 17:03 WBC 9.3 RBC 3.65 L Hgb 10.9 L Hct 32.0 L MCV 87.7 MCH 29.9 MCHC 34.1 RDW 12.5 Plt Count 288 MPV 10.4 Immature Gran % (Auto) 0.6 H Neut % (Auto) 64.4 Lymph % (Auto) 26.1 [place] % (Auto) 8.0 Eos % (Auto) 0.6 Baso % (Auto) 0.3 Lymph # (Auto) 2.42 [place] # (Auto) 0.7 H Eos # (Auto) 0.1 Baso # (Auto) 0.0 Abs Immat Gran (auto) 0.06 H Absolute Neuts (auto) 6.0 Absolute Nucleated RBC 0.000 Nucleated RBC % 0.0 RPR Non-reactive HIV 1&2 Ab/P24 Ag 4thGn Negative Blood Type O Positive Antibody Screen Negative Discharge Plan Discharge Attending physician on discharge: Caro Garcia Discharging Clinician: Caro Garcia Anticipated Discharge Date/Time: 01/16/25 00:07 Patient Disposition: Home, Self-Care Activity: no shower and pelvic rest Diet: regular Patient Instructions: Antibiotic Form Patient Language: Upper Sorbian Stand Alone Forms: General Discharge Information Follow-up/Referrals: Caro Garcia MD [Physician] - 6 Weeks Discharge Medications: New aripiprazole [Abilify] 10 mg Tablet 10 mg PO HS Qty: 30 0RF Continued risperidone 1 mg Tablet 1 mg PO DAILY Discontinued topiramate 100 mg Tablet 100 mg PO DAILY bupropion HCl 300 mg Tablet Extended Release 24 Hr 300 mg PO QAM Date of admission: 01/13/25 16:45 Primary Care Provider: PHYSICIAN,LEADERSHIP PROGRAM INTERNS[employer]IP Admitting Provider: Caro Garcia Attending physician on admission: Caro Garcia Condition: Stable
--- NOTE | 2025-01-14 00:08 | PM.OBPRVD ---
OB - Vaginal Delivery Note Procedure Delivery date: 01/14/25 Events: Other (Induction of labor at 39 weeks) Induction method: AROM and Per Pitocin Protocol Delivery monitor: External FHT and Internal Uterine Route of delivery: Laceration Description: None Specimen: No Quantitative Blood Loss (ml): 50 Anesthesia type: Epidural Disposition: Floor Complications: No immediate complications Baby Date of : 01/13/25 Gestational Age by Date: 39 Infant gender: Female presentation: vertex position: Right Occiput Anterior Placenta delivery description: Spontaneous Cord Vessel Description: 3 Vessels and Delayed Cord Clamping score one minute: 8 score five minutes: 9
[2025-01-14] MEDS: OXYTOCIN 30 UNITS/NS 500 ML 30 UNITS/500 ML BAG 125 UNITS IV CONT (00:32)
--- NOTE | 2025-01-14 02:16 | OBPPTRN ---
Patient transferred to post room #286 via wheelchair. Support person present. Oriented to unit, room, information board, rooming in, admission packet and security measures. Patient verbalizes understanding.
[2025-01-14] MEDS: risperiDONE 1 MG TABLET PO (08:54)
[2025-01-14] MEDS: IBUPROFEN 600 MG TABLET PO ×2 (09:08→17:32)
--- NOTE | 2025-01-14 11:10 | P.PNOB_ITS ---
OB - PN: Subj Subjective Date/time seen: 01/14/25 11:10 Patient comments: no complaints and pain well controlled baby status: doing well OB - PN: Obj Data Labs 01/13/25 17:03 Labs: Laboratory Results - last 24 hr 01/13/25 17:03 WBC 9.3 RBC 3.65 L Hgb 10.9 L Hct 32.0 L MCV 87.7 MCH 29.9 MCHC 34.1 RDW 12.5 Plt Count 288 MPV 10.4 Immature Gran % (Auto) 0.6 H Neut % (Auto) 64.4 Lymph % (Auto) 26.1 [place] % (Auto) 8.0 Eos % (Auto) 0.6 Baso % (Auto) 0.3 Lymph # (Auto) 2.42 [place] # (Auto) 0.7 H Eos # (Auto) 0.1 Baso # (Auto) 0.0 Abs Immat Gran (auto) 0.06 H Absolute Neuts (auto) 6.0 Absolute Nucleated RBC 0.000 Nucleated RBC % 0.0 RPR Non-reactive HIV 1&2 Ab/P24 Ag 4thGn Negative Blood Type O Positive Antibody Screen Negative OB - PN A/P Plan day: 1 Plan: routine care Time Spent With Patient Time: Total time spent is greater than 50% in coordination of care (as documented) at patient's floor/unit and/or counseling patient: Exam 2 : Bimanual exam- vagina & uterus: other (Uterus firm, nt @U)
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
[2025-01-14] MEDS: ARIPiprazole 10 MG TABLET PO (23:00)
[2025-01-15] MEDS: IBUPROFEN 600 MG TABLET PO ×2 (01:32→17:10)
[2025-01-15 07:30] VITALS: BP 109/75; PULSE 70; RESP 16; TEMP 36.7; O2SAT 98
[2025-01-15 08:00] VITALS: PULSE 70; RESP 16; O2SAT 98
--- NOTE | 2025-01-15 09:26 | P.PNOB_ITS ---
OB - PN: Subj Subjective Date/time seen: 01/15/25 09:26 Patient comments: no complaints and pain well controlled baby status: doing well OB - PN: Obj Data Labs 01/13/25 17:03 OB - PN A/P Plan day: 2 Plan: routine care, discharge home and follow up 6 weeks Time Spent With Patient Time: Total time spent is greater than 50% in coordination of care (as documented) at patient's floor/unit and/or counseling patient: Exam 2 : Bimanual exam- vagina & uterus: other (Uterus firm, nt @U)
[2025-01-15] MEDS: risperiDONE 1 MG TABLET PO (10:21)
[2025-01-15 11:34] LABS: Hematocrit 29.5 % (37.0-47.0)
[2025-01-15] MEDS: MEASLES,MUMPS,RUBELLA VACCINE 0.5 ML VIAL SUB-Q (17:09)
[2025-01-19 10:10] VITALS: BP 137/88; PULSE 67; RESP 20; TEMP 36.9; O2SAT 99
== END 2025-01-15 17:32 | disposition home or self-care (01) | DRG 560 ==
LOC: ANHLDR 01-14 00:08 → ANHOB2 01-14 02:42
PROVIDERS: Admitting Provider Obstetrics & Gynecology Gynecology; Visit Provider Obstetrics & Gynecology Gynecology
DX: O99.824 Streptococcus B carrier state complicating childbirth (principal); Z3A.39 39 weeks gestation of pregnancy; Z37.0 Single live birth
CPT/HCPCS: 36415; 85014; 85018; 85025; 86592; 86703; 86850; 86900; 86901; 90710; A9270; G0432; J0290; J2371; J2405; J2590; J7120

== ENCOUNTER 2025-01-25 05:35 | Emergency (ER) | payer OTHER, SELFPAY ==
--- NOTE | ~2025-01-25 | US_ITS ---
Limited Abdominal Sonogram: Real-time sonographic imaging of the right upper quadrant was performed. Clinical History: Right upper quadrant pain Findings: The liver appears normal with no evidence of mass lesion or bile duct dilatation. Main por nubia vein demonstrates normal direction of flow. The gallbladder is well distended, and appears normal with no evidence of gallstone or wall thickening. The common bile duct measures 4 mm. The visualize d pancreas, aorta, and IVC are unremarkable. Right kidney unremarkable. Impression: No significant abnormality seen. Reviewed, dictated and finalized at location M. IER CREDIT Impression: No significant abnormality seen.
--- NOTE | ~2025-01-25 | US_ITS ---
EXAMINATION: US pelvic complete DATE: 01/25/2025 08:27 INDICATION: Retained products of conception. Vaginal bleeding 2 weeks . Right lower quadran t abdominal pain. TECHNIQUE: Multiple transabdominal sonographic images of the pelvis were obtained. COMPARISON: Ultrasound 12/15/2024 FINDINGS: The uterus measures 10.8 x 6.7 x 9.0 cm. There is no free fluid in the pelvis. The endometrial comple x measures 3.4 cm in thickness without internal vascular flow. The right ovary measures 2.9 x 1.7 x 2 .4 cm. The left ovary measures 2.2 x 1.2 x 2.3 cm. There is normal vascular flow in the ovaries. IMPRESSION: 1. Thickened endometrial complex suspicious for retained products of conception. Reviewed, dictated and finalized at location [] Y RAIL TRAIN OPERATOR IMPRESSION: 1. Thickened endometrial complex suspicious for retained products of conception .
[2025-01-25 05:36] VITALS: BP 129/79; PULSE 83; RESP 16; TEMP 36.4; O2SAT 99
--- OUTSIDE RECORDS SUMMARY | 2025-01-25 05:38 | XMS_ITS | Clinical Summary ---
Author Organization [facility] Address [facility] [place] [address] Care Team Providers Care Out Of School Hours Care Worker Name Role Phone No, Physician Primary Care Provider [phone] Social History Tobacco Use Types Packs/Day Years [...] patient's age to complete this topic Insurance [facility] Care Teams Out Of School Hours Care Worker Relationship Specialty Start Date End Date No, Physician PCP - General 04/21/24
--- OUTSIDE RECORDS SUMMARY | 2025-01-25 05:38 | XMS_ITS | Encounter Summary ---
Author Organization [facility] Address [address] [place] [address] Care Team Providers Care Antique Repairer Name Role Phone Unavailable Primary Care Provider Unavailabl e Encounter Details Date Type Department Care Team (Late st Contact Info) Description 01/24/2025 8:00 PM CMA OR LPN Hospital Encounter [facility] - Labor & Delivery [address] [place] [address] Social History Tobacco Use Types Packs/Day Years Used Date Smoking Tobacco: Never Smokeless Tobacco: Never Alcohol Use Standard Drinks/Week Comments Never 0 (1 standard drink = 0.6 oz pur e alcohol) Overall Financial Resource Strain (CARDIA) Answe r Date Recorded How hard is it for you to pa y for the very basics like food, housing, medical care, and heating? Not very hard 09/06/2024 [facility] [place] of Occupat ional Health - Occupational Stress [...] on file Sexual Orientation Not on file documented as of this encounter Plan of Treatment Not on file documented as of this encounter Visit Diagnoses Not on filedocumented in this encounter
--- OUTSIDE RECORDS SUMMARY | 2025-01-25 05:38 | XMS_ITS | Clinical Summary ---
Author Organization [facility] Address [address] [place] [address] Care Team Providers Care Asset Coordinator Name Role Phone Unavailable Primary Care Provider Unavailabl e Source Comments [facility],non-owned Affiliates and Associated Physician Practices is amultiple site organization consisting of ambulatory clinics and hospital sitesin [place], [place], [place] and [place]. This disclosure is being madepursuant to the Care Everywhere program and may not contain all information available regarding this patient. Last updated 18.[facility] Allergies Active Allergy Reactions Criticality Noted Date [...] nts Yes 01/24/2025 Based on Patient Reported Encounters Date Type Department Care Team Description 01/24/2025 8:00 PM MANAGER FARM Hospital Encounter [facility] - Labor & Delivery [address] [place] [address] from Last 3 Months Social History Tobacco Use Types Packs/Day Years [...] care, and heating? Not very hard 09/06/2024 [facility] of Occupat ional Health - Occupational Stress [...] 09/06/2024 8:23 PM CDT Plan of Treatment Health Maintenance Due Date [...]
--- OUTSIDE RECORDS SUMMARY | 2025-01-25 05:38 | XMS_ITS | Patient Health Summary ---
Author Organization [facility] Address [address] [place] [address] Care Team Providers Care Repack Room Worker Name Role Phone Unavailable Primary Care Provider Unavailabl e Note from [facility],non-owned Affiliates and Associated Physician Practices is amultiple site organization consisting of ambulatory clinics and hospital sitesin [place], [place], [place] and [place]. This disclosure is being madepursuant to the Care Everywhere program and may not contain all information available regarding this patient. Last updated 18.[facility] Allergies * Cefdinir(Anaphylaxis) -High Criticality Medications * [...] care, and heating? Not very hard 09/06/2024 [facility] [place] of Occupat ional Health - Occupational Stress [...] place to sleep or slept in a longterm (including now)? No 09/06/2024 Estimated Date of [...] Yellow Yellow, Straw 09/06/2024 8:46 PM CDT [facility] Clarity UA Clear Clear 09/06/2024 8:46 PM CDT [facility] Glucose UA Normal Normal 09/06/2024 8:46 PM CDT [facility] Bilirubin UA Negative Negative 09/06/2024 8:46 PM CDT [facility] Ketone UA Negative Negative 09/06/2024 8:46 PM CDT [facility] Specific [place] UA 1.018 1.005 - 1.030 09/06/2024 8:46 PM CDT [facility] Blood UA Negative Negative 09/06/2024 8:46 PM CDT [facility] pH UA 6.5 5.0 - 9.0 pH 09/06/2024 8:46 PM CDT [facility] Protein UA Negative Negative 09/06/2024 8:46 PM CDT [facility] Urobilinogen UA Normal Normal mg/dL 09/06/2024 8:46 PM CDT [facility] Nitrite UA Negative Negative 09/06/2024 8:46 PM CDT [facility] Leukocyte UA Negative Negative 09/06/2024 8:46 PM CDT [facility] Urine Microscopy Urine microscopy not indicated 09/06/2024 8:46 PM CDT [facility] Reflex Status Culture not indicated 09/06/2024 8:46 PM CDT [facility] Urine URINE SPECIMEN OBTAINED BY CLEAN CATCH PROCEDURE / Unknown Collection / Unknown 09/06/2024 8:22 PM CDT 09/06/2024 8:37 PM CDT Narrative [facility] - 09/06/2024 8:46 PM CDT Edilia Marquez MD LAB - URINALYSIS O RDERABLES [facility] [address] [place] [address]
--- OUTSIDE RECORDS SUMMARY | 2025-01-25 05:38 | XMS_ITS | Referral Summary ---
Author Organization [facility] Address [address] [place] [address] Care Team Providers Care Division Roadmaster Name Role Phone Unavailable Primary Care Provider Unavailabl e Source Comments [facility],non-owned Affiliates and Associated Physician Practices is amultiple site organization consisting of ambulatory clinics and hospital sitesin [place], [place], [place] and [place]. This disclosure is being madepursuant to the Care Everywhere program and may not contain all information available regarding this patient. Last updated 18.[facility] Encounters Date Type Department Care Team Description 01/24/2025 8:00 PM CYCLE MANAGER Hospital Encounter [facility] - Labor & Delivery [address] [place], [place] [id number] from Last 3 Months Allergies Active Allergy Reactions Criticality Noted Date [...] care, and heating? Not very hard 09/06/[address] [facility] [place] of Occupat ional Health - Occupational Stress [...] 09/06/2024 8:23 PM CDT Plan of Treatment Not on file Gabriela Quiros Personal/Family Self 1995
--- OUTSIDE RECORDS SUMMARY | 2025-01-25 05:38 | XMS_ITS | Referral Summary ---
Author Organization [facility] Address [address] [place] [address] Care Team Providers Care Corn Shredder Name Role Phone No, Physician Primary Care Provider [phone] Social History Tobacco Use Types Packs/Day Years [...] Plan of Treatment Not on file Insurance [facility] Care Teams Corn Shredder Relationship Specialty Start Date End Date No, Physician PCP - General 04/21/24
--- OUTSIDE RECORDS SUMMARY | 2025-01-25 07:39 | XMS_ITS | Clinical Summary ---
Author Organization [facility] Address [facility] [place] [address] Care Team Providers Care Embroidery Machine Operator Name Role Phone No, Physician Primary Care Provider [phone] Social History Tobacco Use Types Packs/Day Years [...] patient's age to complete this topic Insurance [facility] Care Teams Embroidery Machine Operator Relationship Specialty Start Date End Date No, Physician PCP - General 04/21/24
--- OUTSIDE RECORDS SUMMARY | 2025-01-25 07:39 | XMS_ITS | Patient Health Summary ---
Author Organization [facility] Address [address] [place] [address] Care Team Providers Care Spoke Maker Name Role Phone Unavailable Primary Care Provider Unavailabl e Note from [facility],non-owned Affiliates and Associated Physician Practices is amultiple site organization consisting of ambulatory clinics and hospital sitesin [place], [place], [place]. This disclosure is being madepursuant to the Care Everywhere program and may not contain all information available regarding this patient. Last updated 18.[facility] Allergies * Cefdinir(Anaphylaxis) -High [...] care, and heating? Not very hard 09/06/2024 [facility] [place] of Occupat ional Health - Occupational Stress [...] Yellow Yellow, Straw 09/06/2024 8:46 PM CDT [facility] Clarity UA Clear Clear 09/06/2024 8:46 PM CDT [facility] Glucose UA Normal Normal 09/06/2024 8:46 PM CDT [facility] Bilirubin UA Negative Negative 09/06/2024 8:46 PM CDT [facility] Ketone UA Negative Negative 09/06/2024 8:46 PM CDT [facility] Specific [place] UA 1.018 1.005 - 1.030 09/06/2024 8:46 PM CDT [facility] Blood UA Negative Negative 09/06/2024 8:46 PM CDT [facility] pH UA 6.5 5.0 - 9.0 pH 09/06/2024 8:46 PM CDT [facility] Protein UA Negative Negative 09/06/2024 8:46 PM CDT [facility] Urobilinogen UA Normal Normal mg/dL 09/06/2024 8:46 PM CDT [facility] Nitrite UA Negative Negative 09/06/2024 8:46 PM CDT [facility] Leukocyte UA Negative Negative 09/06/2024 8:46 PM CDT [facility] Urine Microscopy Urine microscopy not indicated 09/06/2024 8:46 PM CDT [facility] Reflex Status Culture not indicated 09/06/2024 8:46 PM CDT [facility] Urine URINE SPECIMEN OBTAINED BY CLEAN CATCH PROCEDURE / Unknown Collection / Unknown 09/06/2024 8:22 PM CDT 09/06/2024 8:37 PM CDT Narrative [facility] - 09/06/2024 8:46 PM CDT Edilia Marquez MD LAB - URINALYSIS O RDERABLES [facility] [address] [place] [address]
--- OUTSIDE RECORDS SUMMARY | 2025-01-25 07:39 | XMS_ITS | Referral Summary ---
Author Organization [facility] Address [address] [place] [address] Care Team Providers Care Senior Interaction Designer Name Role Phone No, Physician Primary Care Provider [phone] Social History Tobacco Use Types Packs/Day Years [...] Plan of Treatment Not on file Insurance [facility] Care Teams Senior Interaction Designer Relationship Specialty Start Date End Date No, Physician PCP - General 04/21/24
--- OUTSIDE RECORDS SUMMARY | 2025-01-25 07:39 | XMS_ITS | Referral Summary ---
Author Organization [facility] Address [address] [place] [address] Care Team Providers Care Gasket Supervisor Name Role Phone Unavailable Primary Care Provider Unavailabl e Source Comments [facility],non-owned Affiliates and Associated Physician Practices is amultiple site organization consisting of ambulatory clinics and hospital sitesin [place], [place], [place] and [place]. This disclosure is being madepursuant to the Care Everywhere program and may not contain all information available regarding this patient. Last updated 18.[facility] Encounters Date Type Department Care Team Description 01/24/2025 8:00 PM PROGRAM ANALYST Hospital Encounter [facility] - Labor & Delivery [address] [place], [place] [id number] from Last 3 Months Allergies Active Allergy [...] care, and heating? Not very hard 09/06/2024 [facility] [place] of Occupat ional Health - Occupational Stress [...] place to sleep or slept in a half-way (including now)? No 09/06/2024 Estimated Date of [...]
--- OUTSIDE RECORDS SUMMARY | 2025-01-25 07:39 | XMS_ITS | Encounter Summary ---
Author Organization [facility] Address [address] [place] [address] Care Team Providers Care Clip Loading Machine Adjuster Name Role Phone Unavailable Primary Care Provider Unavailabl e Encounter Details Date Type Department Care Team (Late st Contact Info) Description 01/24/2025 8:00 PM BROOMCORN SORTER Hospital Encounter [facility] - Labor & Delivery [address] [place] [address] Social History Tobacco Use Types [...] hard 09/06/2024 [facility] [place] of Occupat ional Health - Occupational Stress [...] place to sleep or slept in a care home (including now)? No 09/06/2024 Estimated Date [...]
--- OUTSIDE RECORDS SUMMARY | 2025-01-25 07:39 | XMS_ITS | Clinical Summary ---
Author Organization [facility] Address [address] [place] [address] Care Team Providers Care Real Estate Economist Name Role Phone Unavailable Primary Care Provider Unavailabl e Source Comments [facility],non-owned Affiliates and Associated Physician Practices is amultiple site organization consisting of ambulatory clinics and hospital sitesin [place], [place], [place] and [place]. This disclosure is being madepursuant to the Care Everywhere program and may not contain all information available regarding this patient. Last updated 18.[facility] Allergies Active Allergy Reactions Criticality Noted Date [...] Department Care Team Description 01/24/2025 8:00 PM ULTRASONIC SEAMING MACHINE OPERATOR Hospital Encounter [facility] - Labor & Delivery [address] [place] [address] from Last 3 Months Social [...] care, and heating? Not very hard 09/06/2024 [facility] [place] of Occupat ional Health - Occupational Stress [...] place to sleep or slept in a usp (including now)? No 09/06/2024 Estimated Date of [...]
[2025-01-25] MEDS: SODIUM CHLORIDE 0.9% IV 1,000 ML 999 ML IV CONT (07:41)
[2025-01-25 07:44] LABS: Basophils Percent Auto 0.6 % (0.2-1.2); Eosinophils Absolute Auto 0.1 K/mm3 (0-0.3); Eosinophils Percent Auto 1.1 % (0-4.4); Hematocrit 40.9 % (37.0-47.0); Hemoglobin 13.4 g/dL (12.0-15.0); Immature Granulocyte Absolute 0.01 K/mm3 (0.00-0.031); Immature Granulocyte Percent A 0.2 % (0-0.5); Lymphocytes Absolute Auto 3.16 K/mm3 (0.9-3.2); Lymphocytes Percent Auto 48.9 % (18.3-44.2); Mean Corpuscular HGB Conc 32.8 g/dl (32-36); Mean Corpuscular Hemoglobin 28.7 pg (26-34); Mean Corpuscular Volume 87.6 fl (80-100); Mean Platelet Volume 9.6 fl (7.4-10.4); Monocytes Absolute Auto 0.5 K/mm3 (0.1-0.6); Monocytes Percent Auto 7.6 % (2.6-8.5); Neutrophils Absolute Auto 2.7 K/mm3 (1.3-6.7); Neutrophils Percent Auto 41.6 % (45.5-73.1); Platelet Count Result 474 k/mm3 (150-375); Red Blood Count 4.67 M/mm3 (4.2-5.4); Red Cell Distribution Width 13.1 % (11.5-14.5); White Blood Count 6.5 K/mm3 (4.5-10.0)
--- NOTE | 2025-01-25 07:52 | ED_ITS ---
HPI - Abdominal Pain General Chief Complaint: Abdominal Pain Stated Complaint: nausea, right lower abdominal pain Time Seen by Provider: 01/25/25 07:25 History of Present Illness HPI narrative: Patient is a 21-year-old female who presents ER with right-sided abdominal pain. Right mid to upper abdomen. Worse with bending and twisting. Ongoing for 2 days. No alleviating factors. Has trouble picking up her baby. Your urinary frequency urgency or dysuria. She did start having some increased vaginal bleeding today. She gave on 01/13/2025. She is not breast feeding. Related Data Home Medications ?Medication ?Instructions ?Recorded ?Confirmed ?Last Taken ?Type risperidone 1 mg tablet 1 mg PO DAILY 05/18/22 12/24/24 Unknown History Allergies Allergy/AdvReac Type Severity Reaction Status Date / Time cefdinir (From Omnicef) Allergy Swelling Verified 01/25/25 05:41 of Lip/Tongue/Throat Review of Systems 2 Review of Systems: All systems reviewed & are unremarkable except as noted in HPI and below Constitutional: Constitutional: Reports no additional constitutional complaints Cardiovascular: Cardiovascular: Reports no additional cardiovascular complaints Respiratory: Respiratory: Reports no additional respiratory complaints Gastrointestinal: Gastrointestinal: Reports no additional gastrointestinal complaints Genitourinary: Genitourinary: Reports no additional female genitourinary complaints [facility] Past Medical History Medical History (Updated 01/25/25 @ 09:16 by Sebastian Waldron MD) History of ITP Asthma IUP (intrauterine ), incidental Bipolar 1 disorder Night terrors, adult Anxiety with depression Dog bite facial required facial reconstruction No active medical problems Family History Family History (Updated 12/24/24 @ 13:39 by Lorenza Valdez RN) Mother Ovarian cancer Breast cancer Social History Social History (System 07/23/23 @ 09:12 by Jakob Junior) Smoking status: Former smoker Tobacco type: e-cigarettes/vaping Alcohol intake: unknown Substance use: unknown Do You Feel Safe in your Home?: Yes Lack of Transportation: No Lack of Food: Never True Current Housing: I Have Housing Concerned About Future Housing: No Difficulty Paying Gas/Electric Bills: No Difficulty Paying for Meds: No Currently Unemployed: No Education: Grade School Difficulty w/ Childcare or Family Care: No Gender identity (if verbalized by the patient): Female Spiritual care concerns: No Exam 2 Narrative: GENERAL: Well-appearing, well-nourished, and in no acute distress. HEAD: Normocephalic, atraumatic. ENT: Mucous membranes moist. CHEST: Clear to auscultation. No respiratory distress. HEART: Regular rate and rhythm. Normal peripheral pulses. ABDOMEN: Soft, TTP right mid to upper abdomen, no guarding, nondistended. : Normal external genitalia, speculum exam with small amount of dark blood that is cleared with 1 swab. No significant tenderness. Difficulty visualizing the cervical os due to redundant vaginal tissue. No vaginal discharge. EXTREMITIES: Normal range of motion. No edema. SKIN: Warm, dry, no rash. NEURO: Alert and oriented x3. PSYCH: Normal mood and affect. Course Course Emergency Course: Discussed with OB. Appropriate for discharge home with close follow-up. Recommends ibuprofen and Tylenol as needed for pain. We discussed ultrasound and concern for retained products is low from their standpoint. Vital Signs Vital signs: Vital Signs Temperature 97.6 F 01/25/25 05:36 Pulse Rate 83 01/25/25 05:36 Respiratory Rate 16 01/25/25 05:36 Blood Pressure 129/79 01/25/25 05:36 Pulse Oximetry 99 01/25/25 05:36 Oxygen Delivery Room Air 01/25/25 05:36 Temperature 97.6 F 01/25/25 05:36 Pulse Rate 83 01/25/25 05:36 Respiratory Rate 16 01/25/25 05:36 Blood Pressure 129/79 01/25/25 05:36 Pulse Oximetry 99 01/25/25 05:36 Oxygen Delivery Room Air 01/25/25 05:36 MDM - Abdominal Pain Lab Data 01/25/25 07:35 01/25/25 07:35 Labs: Lab Results 01/25/25 01/25/25 Range/Units 07:35 07:43 WBC 6.5 (4.5-10.0) K/mm3 RBC 4.67 (4.2-5.4) M/mm3 Hgb 13.4 D (12.0-15.0) g/dL Hct 40.9 (37.0-47.0) % MCV 87.6 (80-100) fl MCH 28.7 (26-34) pg MCHC 32.8 (32-36) g/dl RDW 13.1 (11.5-14.5) % Plt Count 474 H D (150-375) k/mm3 MPV 9.6 (7.4-10.4) fl Immature Gran % (Auto) 0.2 (0-0.5) % Neut % (Auto) 41.6 L (45.5-73.1) % Lymph % (Auto) 48.9 H (18.3-44.2) % [place] % (Auto) 7.6 (2.6-8.5) % Eos % (Auto) 1.1 (0-4.4) % Baso % (Auto) 0.6 (0.2-1.2) % Lymph # (Auto) 3.16 (0.9-3.2) K/mm3 [place] # (Auto) 0.5 (0.1-0.6) K/mm3 Eos # (Auto) 0.1 (0-0.3) K/mm3 Baso # (Auto) 0.0 (0.0-0.1) K/mm3 Abs Immat Gran (auto) 0.01 (0.00-0.031) K/mm3 Absolute Neuts (auto) 2.7 (1.3-6.7) K/mm3 Absolute Nucleated RBC 0.000 (0.0-0.012) K/mm3 Nucleated RBC % 0.0 (0.0-0.2) % PT 13.1 (11.1-14.7) Seconds INR 0.9 APTT 34.1 (22.3-36.8) Seconds Sodium 140 (137-145) mmol/L Potassium 4.1 (3.4-5.0) mmol/L Chloride 105 (98-107) mmol/L Carbon Dioxide 23 (22-30) mmol/L Anion Gap 12 (4-12) mmol/L BUN 17 (7-17) mg/dL Creatinine 0.75 (0.7-1.0) mg/dL Estim Creat Clear Calc 95 ml/min Estimated GFR > 60 (59 - ) Glucose 105 (65-110) mg/dL [place] 9.3 (8.4-10.2) mg/dL Total Bilirubin 0.5 (0.2-1.3) mg/dL AST 21 (14-36) U/L ALT 23 (6-35) U/L Alkaline Phosphatase 93 (38-126) U/L Total Protein 8.0 (6.3-8.2) g/dL Albumin 4.4 (3.5-5.1) g/dL Beta HCG, Quant 7.55 mIU/ML Urine Color Yellow (Yellow) Urine Appearance Clear (Clear) Urine pH 7.0 (5.0-9.0) Ur Specific [place] 1.018 (1.001-1.035) Urine Protein Negative (Negative) mg/dL Urine Glucose (UA) Negative (Negative) mg/dL Urine Ketones Negative (Negative) mg/dL Ur Blood (Man) 2+ H (Negative) Urine Nitrate Negative (Negative) Urine Bilirubin Negative (Negative) Urine Urobilinogen 1.0 (<2.0) mg/dL Leukocyte Esterase Rfl Trace H (Negative) DREW/UL Urine RBC 0-2 (0-2) /hpf Urine WBC 0-5 (0-3) /hpf Ur Squamous Epith Cells None seen (Few) /hpf Urine Bacteria None seen /hpf Urine Casts 0-2 Urine Test Positive Imaging Data Radiologist's impression: ITS Impressions Upper Quadrant Ultrasound 01/25/25 08:28 Impression: No significant abnormality seen. Pelvis Ultrasound 01/25/25 08:30 IMPRESSION: 1. Thickened endometrial complex suspicious for retained products of conception. Discharge Plan Discharge Clinical Impression: Right sided abdominal pain, bleeding Patient Disposition: Home, Self-Care Condition: Stable Instructions: Bleeding (ED) Additional Instructions: Follow-up with your OB for further treatment and evaluation. Take Tylenol and ibuprofen as needed for pain. Return to the ER if you have fever over 100.4? F, you have severe lower abdominal pain, or you have additional concerns. Patient Language: Belarusian Prescriptions: No Action risperidone 1 mg Tablet 1 mg PO DAILY aripiprazole [Abilify] 10 mg Tablet 10 mg PO HS Qty: 30 0RF risperidone [Risperdal] 1 mg Tablet 1 mg PO DAILY Qty: 30 0RF Follow-up/Referrals: Caro Garcia MD [Physician] - 1 Week PHYSICIAN,HIGH SCHOOL BIOLOGY TEACHER [Primary Care Provider] -
[2025-01-25 07:56] LABS: Alanine Aminotransferase 23 U/L (6-35); Albumin Level 4.4 g/dL (3.5-5.1); Alkaline Phosphatase 93 U/L (38-126); Anion Gap 12 mmol/L (4-12); Aspartate Amino Transferase 21 U/L (14-36); Bilirubin,Total 0.5 mg/dL (0.2-1.3); Blood Urea Nitrogen 17 mg/dL (7-17); Calcium 9.3 mg/dL (8.4-10.2); Carbon Dioxide 23 mmol/L (22-30); Chloride 105 mmol/L (98-107); Estimated CRCL calculation 95 ml/min; Estimated Glomerular Filt Rate > 60; Glucose 105 mg/dL (65-110); INR 0.9; Partial Thromboplastin Time 34.1 Seconds (22.3-36.8); Potassium 4.1 mmol/L (3.4-5.0); Prothrombin Time 13.1 Seconds (11.1-14.7); Sodium 140 mmol/L (137-145)
[2025-01-25 08:03] LABS: Add Urine Microscopic? YES; Appearance Urine Clear (Clear); Bacteria Urine None Seen /hpf; Bilirubin Urine Negative (Negative); Blood Urine 2+ (Negative); Color Urine Yellow (Yellow); Glucose Urine UA Negative (Negative); Ketones Urine Negative (Negative); Leukocyte Esterase Ur Trace LEU/UL (Negative); Nitrate Urine Negative (Negative); Non Pathogenic Casts 0-2; Pregnancy On Board Control Positive; Protein Urine Negative (Negative); RBC Urine 0-2 /hpf (0-2); Specific Grav Ur 1.018 (1.001-1.035); Squamous Epithelial Cell Urine None Seen /hpf (Few); Urine Pregnancy Test Positive; WBC Urine 0-5 /hpf (0-3)
[2025-01-25] MEDS: KETOROLAC 30 MG/ML VIAL (*BKC) IV PUSH (08:03)
--- NOTE | 2025-01-25 08:07 | PC.NURSE ---
US at bedside.
[2025-01-25 08:11] LABS: Beta HCG Quantitative 7.55 mIU/ML
--- NOTE | 2025-01-25 08:12 | PC.NURSE ---
US at bedside
== END 2025-01-25 09:37 | disposition home or self-care (01) ==
PROVIDERS: Emergency Provider Emergency Medicine
DX: O72.2 Delayed and secondary postpartum hemorrhage (principal); R10.11 Right upper quadrant pain; F31.9 Bipolar disorder, unspecified; F17.290 Nicotine dependence, other tobacco product, uncomplicated
CPT/HCPCS: 36415; 76705; 76856; 80053; 81001; 81025; 84702; 85025; 85610; 85730; 96361; 96374; 99284; J1885; J7030

== ENCOUNTER 2025-06-11 18:23 | Emergency (ER) | payer OTHER, MEDICAID, SELFPAY ==
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
--- OUTSIDE RECORDS SUMMARY | 2025-06-11 18:25 | XMS_ITS | Clinical Summary ---
Author Organization [facility] Address [address] [place] [address] Care Team Providers Care Avionics System Engineer Name Role Phone Unavailable Primary Care Provider Unavailabl e Source Comments [facility],non-owned Affiliates and Associated Physician Practices is amultiple site organization consisting of ambulatory clinics and hospital sitesin [place], [place] and [place]. This disclosure is being madepursuant to the Care Everywhere program and may not contain all information available regarding this patient. Last updated 18.[facility] [place] Allergies Active Allergy Reactions Criticality Noted Date Comments Cefdinir Anaphylaxis High 09/06/2024 Medications * Be aware that medications may not be up to date on this document. Alwaysverify current medications with the patient. Vit-Fe Fumarate-FA ( vitamin) 28-0.8 MG tablet [...] care, and heating? Not very hard 09/06/2024 [facility] [place] of Occupat ional Health - Occupational Stress [...] place to sleep or slept in a prison (including now)? No 09/06/2024 Comments No Sex and Gender Information Value Date Recorded Sex Assigned at Not on file Legal Sex Female 3:04 PM AFTER SCHOOL CAREGIVER Gender Identity Not on file Sexual Orientation [...] 8:23 PM CDT Height 160 cm (5' 3) 09/06/2024 8:23 PM CDT Body Mass Index 30.11 09/06/2024 8:23 PM CDT Plan of Treatment Health Maintenance Due Date Last Done Comments HIV SCREENING 2011 HEPATITIS C SCREENING 08/23/2014 DTAP/TDAP/TD VACCINES (1 - Tdap) 2015 HEPATITIS B VACCINE (1 of 3 - 19+ 3-dose series) 2015 PAP SMEAR 2017 HPV VACCINE (1 - 3-dose SCDM series) 2023 COVID-19 VACCINE (1 - 2023-2 5 season) 2024 DEPRESSION SCREENING 11/30/2024 INFLUENZA VACCINE (#1) 2025 , 09/10/2021 ZOSTER VACCINE (1 of 2) 2046 HIB VACCINE Aged Out No longer eligi ble based on patient's age to complete this topic MENINGOCOCCAL (Group B) VACCINE SHARED DECISION-MAKING Aged Out No longer eligible based on patient's age to complete this topic MENINGOCOCCAL GROUPS A/C/Y/W VACCINE Aged Out No longer eligible b ased on patient's age to complete this topic PNEUMOCOCCAL VACCINE Aged Out No long er eligible based on patient's age to complete this topic Insurance [facility]
--- OUTSIDE RECORDS SUMMARY | 2025-06-11 18:25 | XMS_ITS | Clinical Summary ---
Author Organization [facility] Address [facility] [place] [address] Care Team Providers Care Associate Professor Of Automation Name Role Phone No, Physician Primary Care Provider [phone] Social History Tobacco Use Types Packs/Day Years [...] Regular Well Visit/Exam 18-64 2014 Influenza Vaccine (Season Ended) 2025 12/04/2022, 09/10/2021 HPV Vaccines Completed 12/04/2022, 02/06/2022, 07/24/2021 Pneumococcal vaccine <65 Aged Out No longer eligible based on patient's age to complete this topic Insurance [facility] Care Teams Associate Professor Of Automation Relationship Specialty Start Date End Date No, Physician PCP - General 04/21/24
--- OUTSIDE RECORDS SUMMARY | 2025-06-11 18:25 | XMS_ITS | Referral Summary ---
Author Organization [facility] Address [address] [place] [address] Care Team Providers Care Electric Arc Furnace Operator Name Role Phone No, Physician Primary Care Provider [phone] Social History Tobacco Use Types Packs/Day Years [...] Plan of Treatment Not on file Insurance [facility] [place] [address] Care Teams Electric Arc Furnace Operator Relationship Specialty Start Date End Date No, Physician PCP - General 04/21/24
--- OUTSIDE RECORDS SUMMARY | 2025-06-11 18:25 | XMS_ITS | Continuity of Care Document ---
Author Organization [facility] Address [id number] [address] Phone Care Team Providers Care Contract Post Office Clerk Name Role Phone Jada DUNNE, Susana Unavailable Unavailabl e Allergies, Adverse Reactions, Alerts Substance Reaction Status Criticality cefdinir Active No Information Medications Medication Instructions Dosage Effective Dates (start - stop) Status Comments clindamycin 150 mg capsule take 2 capsule by oral route every 6 hours 300 MG - Active [place] 5 mg-325 mg tablet take 1 tablet by oral route every 6 hours as needed for pain - Active Prena1 30 mg iron-1 mg-200 mg capsule take 1 capsule by oral route every day with a meal - Active Procedures Procedure Date Intraoral Periapical First Film Limited Oral Evaluation Problem Focused EDR Approval Note Advance Directives Directive Yes / No Effective Date File Name No Information Encounters Encounter Description Practice Location Reason(s) For Visit Diagnoses Date Provider Providers Copied on Encounter [facility], [id number], [id number], [place] tel:[phone] [place] [address] No Information 8 Jada Meza. [address], [place], [id number], [place]. tel:[phone] [facility], [id number], [id number], [place] tel:[phone] [facility] Encounter for dental exam and cleaning w/o abnormal findings [id number] 6 No Information Family History Family Member Type Diagnosis Age At Onset Daughter Problem (finding) Alive and well Payers Payer name Insurance type Covered libertarian ID Authoriza tion(s) No Information Social History Type Description Quantity Date Captured Comments Alcohol Use Details Unknown Caffeine Use Details Unknown Tobacco Use Status Smoking Status No Information Sex Female Chief Complaint And Reason For Visit No Information Reason For Referral Reason For Referral No Information Plan Of Treatment Date Type Action Status Goal Tobacco cessation counseling completed History Of Present Illness Encounter Date Complaint History Of Prese nt Illness No Information Functional Status Date Functional Assessmen t No Information Instructions Date Instruction Additional Infor mation Lifestyle education Related to D ental Examination Assessments Type Assessment Date No Information Patient Care Teams Name Effective Dates (start - stop) Status Members No Information
[2025-06-11 18:27] VITALS: BP 110/65; PULSE 73; RESP 15; TEMP 36.7; O2SAT 100
--- OUTSIDE RECORDS SUMMARY | 2025-06-11 22:15 | XMS_ITS | Clinical Summary ---
Author Organization [facility] Address [address] [place] [address] Care Team Providers Care Loss Prevention Manager Name Role Phone Unavailable Primary Care Provider Unavailabl e Source Comments [facility],non-owned Affiliates and Associated Physician Practices is amultiple site organization consisting of ambulatory clinics and hospital sitesin [place], [place], [place] and [place]. This disclosure is being madepursuant to the Care Everywhere program and may not contain all information available regarding this patient. Last updated 18.[facility] Allergies Active Allergy Reactions Criticality Noted Date [...] care, and heating? Not very hard 09/06/2024 [facility] - Occupational Stress [...] place to sleep or slept in a long-term (including now)? 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
--- OUTSIDE RECORDS SUMMARY | 2025-06-11 22:15 | XMS_ITS | Continuity of Care Document ---
Author Organization [facility] Address [id number] [address] Phone Care Team Providers Care Health Physicist Name Role Phone Jada DUNNE, Susana Unavailable Unavailabl e Allergies, Adverse Reactions, Alerts Substance Reaction Status Criticality cefdinir Active No Information Medications Medication Instructions Dosage Effective Dates (start - stop) Status Comments clindamycin 150 mg capsule take 2 capsule by oral route every 6 hours 300 MG - Active [place] 5 mg-325 mg tablet take 1 tablet [...] Diagnoses Date Provider Providers Copied on Encounter [facility], [id number], [id number], [place] tel:[phone] [place] [address] No Information 8 Jada Meza. [address], [place], [id number], [place]. tel:[phone] [facility], [id number], [id number], [place] tel:[phone] [facility] Encounter for dental exam and cleaning w/o abnormal findings [id number] [id number] 6 No Information Family History Family Member Type Diagnosis Age At Onset Daughter Problem (finding) Alive and well Payers Payer name Insurance type Covered republican ID Authoriza tion(s) No Information Social History [...]
--- OUTSIDE RECORDS SUMMARY | 2025-06-11 22:15 | XMS_ITS | Referral Summary ---
Author Organization [facility] Address [address] [place] [address] Care Team Providers Care Transformation Lead Name Role Phone No, Physician Primary Care Provider Social History Tobacco Use Types Packs/Day Years [...] Plan of Treatment Not on file Insurance [facility] Care Teams Transformation Lead Relationship Specialty Start Date End Date No, Physician PCP - General 04/21/24
--- OUTSIDE RECORDS SUMMARY | 2025-06-11 22:15 | XMS_ITS | Clinical Summary ---
Author Organization [facility] Address [facility] [place] [address] Care Team Providers Care Lining Stamper Name Role Phone No, Physician Primary Care Provider [phone] Social History Tobacco Use Types Packs/Day Years [...] patient's age to complete this topic Insurance [facility] Care Teams Lining Stamper Relationship Specialty Start Date End Date No, Physician PCP - General 04/21/24
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
[2025-06-11] MEDS: ACETAMINOPHEN 500 MG TABLET 1000 MG PO (22:36)
[2025-06-11] MEDS: KETOROLAC (*BKC) 60 MG/2 ML VIAL IM (22:37)
[2025-06-11 22:40] LABS: BEDSIDEPREGUCG Negative (Negative)
[2025-06-11 22:44] LABS: Add Urine Microscopic? NO; Appearance Urine Clear (Clear); Glucose Urine UA Negative (Negative); Leukocyte Esterase Ur Negative LEU/UL (Negative); Nitrate Urine Negative (Negative); Specific Grav Ur 1.034 (1.001-1.035)
--- NOTE | 2025-06-11 23:23 | PC.NURSE ---
Report received from ELIN Diaz. Assumed care of patient at this time.
[2025-06-12 01:10] VITALS: BP 108/64; PULSE 71; RESP 17; TEMP 36.4; O2SAT 100
[2025-06-12] MEDS: CYCLOBENZAPRINE HCL 5 MG TABLET PO (01:23)
== END 2025-06-12 01:30 | disposition home or self-care (01) ==
PROVIDERS: Emergency Provider Physician Assistant
DX: S39.012A Strain of muscle, fascia and tendon of lower back, initial encounter (principal); S29.012A Strain of muscle and tendon of back wall of thorax, initial encounter; V89.2XXA Person injured in unspecified motor-vehicle accident, traffic, initial encounter; J45.909 Unspecified asthma, uncomplicated; F31.9 Bipolar disorder, unspecified; Z87.891 Personal history of nicotine dependence
CPT/HCPCS: 72128; 72131; 81003; 81025; 96372; 99284; A9270; J1885